=== PATIENT | female | born 1990 | race Caucasian/White ===

== ENCOUNTER 2018-12-11 10:56 | Emergency (ER) | payer SELFPAY ==
[2018-12-11] MEDS ORDERED: KETOROLAC TROMETHAMINE 60 MG/2 ML SDV IM ONE (12:10)
--- NOTE | 2018-12-11 12:21 | ER Document Report ---
HPI - HPI Patient complains to provider of: right knee pain Time Seen by Provider: 12/11/18 12:01 Onset: Yesterday Onset/Duration: Sudden Severity: Severe Pain Level: 5 Context: This 28-year-old female presents emergency department with complaints of right knee pain. Reports she was playing soccer on Tuesday when she stopped all of a sudden and twisted her knee. She reports she felt immediate pop and pain at the time. She reports she did not fall. Patient reports she was ble to walk afterwards but she has to walk on her toe because of the pain. She has a brace on her knee. Denies past medical history of injury to the knee. Patient has full range of motion the knee but c/o pain with movement. Associated Symptoms: None Exacerbated by: Movement, Walking Relieved by: Denies Similar symptoms previously: No Recently seen / treated by doctor: No - REPRODUCTIVE Reproductive: DENIES: : Past Medical History - General Information source: Patient Last Menstrual Period: 11/30/18 - Social History Smoking Status: Unknown if Ever Smoked Cigarette use (# per day): No Frequency of alcohol use: Occasional Drug Abuse: Marijuana Occupation: none Lives with: Family Family History: Reviewed & Not Pertinent, DM, Hypertension Patient has suicidal ideation: No Patient has homicidal ideation: No Pulmonary Medical History: Reports: Hx Asthma Traumatic Medical History: Reports: Hx Fractures Past Surgical History: Reports: Hx Orthopedic Surgery - right arm - Immunizations Hx Diphtheria, Pertussis, Tetanus Vaccination: Yes - 04/25/12 Vertical Provider Document - CONSTITUTIONAL Agree With Documented VS: Yes Exam Limitations: No Limitations General Appearance: WD/WN, Mild Distress - winces when right knee is palpated or with ROM - INFECTION CONTROL TRAVEL OUTSIDE OF THE [place] IN LAST 30 DAYS: No - HEENT HEENT: Atraumatic, Normocephalic - NECK Neck: Supple - RESPIRATORY Respiratory: No Respiratory Distress - CARDIOVASCULAR Cardiovascular: Regular Rate - MUSCULOSKELETAL/EXTREMETIES Musculoskeletal/Extremeties: MAEW, FROM, Tender - RIGHT KNEE TTP laterally, no obvious deformity no swelling no erythema no warmth flexes and extends knee with c/o pain. Good pedal pulse good cap refill. pt ambulates with her knee in slightly flexed position - NEURO Level of Consciousness: Awake, Alert, Appropriate Motor/Sensory: No Motor Deficit - DERM Integumentary: Warm, Dry Course - Re-evaluation Re-evalutation: 12/11/18 12:24 This 28-year-old female presents with right knee pain after playing soccer yesterday. Reports she was running stop suddenly and twisted her knee when she felt immediate pop. Patient is able to flex and extend her knee but complains of pain with movement and with ambulating. No obvious deformity no swelling no erythema, suspect a meniscus injury. Discussed plan of care with patient. Patient does not have any insurance. She does report soccer has insurance and she will follow-up with them. Discussed x-ray now splint pain medication and need to follow-up with orthopedics for possible MRI as indicated. 12/11/18 12:56 Knee X-Ray 12/11/18 12:11 IMPRESSION: Small joint effusion. No osseous abnormality. 12/11/18 13:16 Patient reports knee feeling a little bit better but is not sure if it is due to the medication or the knee immobilizer. Patient again was instructed on no sports and importance of follow-up with orthopedics or return to the emergency department for concerns she verbalized understanding to all instruction. - Vital Signs Vital signs: Temp Pulse Resp BP Pulse Ox 98.8 F 88 16 131/75 H 96 12/11/18 10:59 12/11/18 10:59 12/11/18 10:59 12/11/18 10:59 12/11/18 10:59 - Diagnostic Test Radiology reviewed: Image reviewed, Reports reviewed Procedures - Immobilization Right Knee Pre-Proc Neuro Vasc Exam: Normal Immobilizer type: Knee immobilizer Performed by: PCT - anderia Post-Proc Neuro Vasc Exam: Unchanged from pre-exam Alignment checked and good: Yes Discharge - Discharge Clinical Impression: Right knee pain Qualifiers: Chronicity: acute Qualified Code(s): M25.561 - Pain in right knee Condition: Stable Disposition: HOME, SELF-CARE Instructions: Anti-Inflammatory Medication ([facility]), Use of Crutches ([facility]), Ice & Elevation ([facility]), Suspected Internal Knee Injury ([facility]), Knee Effusion ([facility]), Knee Immobilizing Splint ([facility]), Sports and your Knee ([facility]), Toradol Injection ([facility]) Additional Instructions: *You have been evaluated for right knee pain, possible internal injury *Maintain the splint, use your crutches *Rest/Ice/Elevate your knee, no sports until follow up with orthopedics *Follow up with orthopedics within one week for evaluation call for an appointment *Take medication as prescribed *Return to ED for worsening condition, changes, needs Prescriptions: Ketorolac Tromethamine [Toradol 10 mg Tablet] 10 mg PO Q6HP PRN #15 tablet PRN Reason: Forms: Elevated Blood Pressure Referrals: KIMMY LEDEZMA MD [ACTIVE STAFF] - Follow up as needed [facility] [Provider Group] - Follow up as needed MITALI NEWSOME MD [ACTIVE PROVISIONAL STAFF] - Follow up as needed
--- NOTE | 2018-12-11 12:42 | RADIOLOGY REPORT (SQ) ---
EXAM DESCRIPTION: KNEE RIGHT 4 VIEWS COMPLETED DATE/TIME: 12/11/2018 12:34 pm REASON FOR STUDY: pain, soccer injury, felt pop COMPARISON: None. NUMBER OF VIEWS: Four views. TECHNIQUE: AP, lateral, and both oblique radiographic images acquired of the right knee. LIMITATIONS: None. FINDINGS: MINERALIZATION: Normal. BONES: No acute fracture or dislocation. No worrisome bone lesions. JOINT: There is a small joint effusion. SOFT TISSUES: No soft tissue swelling. No radio-opaque foreign body. OTHER: No other significant finding. IMPRESSION: Small joint effusion. No osseous abnormality. TECHNICAL DOCUMENTATION: JOB ID: [id number] [employer]- All Rights Reserved Reading location - IP/workstation name: [email or web address]
[2018-12-11 13:21] VITALS: BP 122/67
== END 2018-12-11 13:22 | disposition home or self-care (01) ==
LOC: ER 10:56
DX: M25.561 Pain in right knee (principal); X50.1XXA Overexertion from prolonged static or awkward postures, initial encounter
CPT/HCPCS: 73564; L1830; J1885